=== PATIENT | female | born 1950 | race Caucasian/White ===

== ENCOUNTER 2018-08-18 15:15 | Inpatient (IN) | payer OTHER, MEDICARE ==
[~2018-08-18] VITALS: Ht 172.7 cm; Wt 83.3 kg
[2018-08-18 15:41] VITALS: BP 185/69
[2018-08-18 16:04] LABS: APPEARANCE,URINE Clear (CLEAR); BILIRUBIN,URINE Negative (NEGATIVE); COLOR,URINE Yellow (YELLOW); GLUCOSE, URINE (UA) Negative (NEGATIVE); KETONES,URINE Negative (NEGATIVE); LEUKOCYTE ESTERASE ,URINE Small (NEGATIVE); NITRATE,URINE Negative (NEGATIVE); OCCULT BLOOD,URINE Negative (NEGATIVE); PH,URINE 6.5 (5.0-8.0); PROTEIN,URINE Negative (NEGATIVE); UROBILINOGEN,URINE 0.2 mg/dL (0.2-1.0)
[2018-08-18 16:22] LABS: RBC,URINE 0-1 /HPF (0-1)
[2018-08-18 16:23] LABS: BACTERIA,URINE Rare /HPF (None Seen); SQUAMOUS EPITHELIAL CELL,UR None Seen /HPF (0-2)
[2018-08-21] VITALS (20 sets, daily range): BP systolic 123–156; BP diastolic 60–77
[2018-08-21] MEDS: CEFAZOLIN SODIUM 1 GM VIAL IVP SCH ×4 (06:00→22:41)
[2018-08-21] MEDS ORDERED: LACTATED RINGERS 1000ML 1,000 ML IV ONE (06:34)
[2018-08-21] MEDS ORDERED: ALEN70TA47 PO (06:58)
[2018-08-21] MEDS ORDERED: ATEN50TA PO (06:58)
[2018-08-21] MEDS ORDERED: LISI10TA7 PO (06:58)
[2018-08-21] MEDS ORDERED: NAPR-1023 PO (06:58)
[2018-08-21] MEDS ORDERED: BUPIVACAINE/EPI/PF 0.25% 50 ML VIAL ONE (07:25)
[2018-08-21] MEDS ORDERED: TRANEXAMIC ACID 1000MG/10ML IV ONE (07:25)
[2018-08-21] MEDS ORDERED: HYDROMORPHONE 1 MG/1 ML AMP ONE (07:48)
[2018-08-21] MEDS ORDERED: ONDANSETRON HCL MDV 20ML 2 MG/ML VIAL ONE ×2 (07:50→07:57)
[2018-08-21] MEDS ORDERED: LIDOCAINE PF 2% 5ML ABBOJECT ONE (07:50)
[2018-08-21] MEDS ORDERED: PROPOFOL 1000 MG/100 ML 100 ML IV ONE ×2 (07:50→10:17)
[2018-08-21] MEDS ORDERED: MIDAZOLAM HCL 1 MG/ML 2ML VIAL ONE (07:51)
[2018-08-21] MEDS ORDERED: ROCURONIUM 10MG/1ML SYR 10 MG/ML ML ONE (07:51)
[2018-08-21] MEDS ORDERED: KETAMINE 50MG/ML SYRINGE 50 MG/ML DISP.SYRIN IV ONE (08:00)
[2018-08-21] MEDS ORDERED: ROPIVACAINE 0.5% 5MG/ML 30ML IJ ONE ×2 (08:05→11:21)
[2018-08-21] MEDS ORDERED: DEXAMETHASONE SOD PHOSPHATE 10MG/ML 1ML VIAL ONE (10:16)
[2018-08-21] MEDS ORDERED: GLYCOPYRROLATE 1 MG/5 ML SYRINGE ONE (10:24)
[2018-08-21] MEDS ORDERED: NEOSTIGMINE 5MG/5ML SYR IV ONE (10:24)
[2018-08-21] MEDS ORDERED: CALCIUM CARBONATE 500 MG TABLET PO PRN (10:30)
[2018-08-21] MEDS ORDERED: TEMAZEPAM 15 MG CAPSULE PO PRN (10:30)
[2018-08-21] MEDS ORDERED: POTASSIUM CHLORIDE 10% ELIXIR 20 MEQ/15 ML UDCUP PO PRN (10:30)
[2018-08-21] MEDS ORDERED: POTASSIUM CHLORIDE 20 MEQ ERTAB PO PRN (10:30)
[2018-08-21] MEDS ORDERED: ONDANSETRON HCL 4 MG/2 ML VIAL IVP PRN (10:30)
[2018-08-21] MEDS ORDERED: DiphenhydrAMINE HCL 50 MG/ML VIAL IVP PRN (10:30)
[2018-08-21] MEDS ORDERED: FERROUS FUMARATE 324 MG TABLET PO PRN (10:30)
[2018-08-21] MEDS: ACETAMINOPHEN EXTRA STRENGTH 500 MG TABLET PO SCH ×2 (10:30→17:44)
[2018-08-21] MEDS ORDERED: POTASSIUM CHLORIDE 20MEQ/100ML 100 ML IV PRN (10:30)
[2018-08-21] MEDS ORDERED: TRAMADOL HCL 50 MG TABLET PO PRN (10:30)
[2018-08-21] MEDS ORDERED: LIDOCAINE HCL-MPF 1% 2ML VIAL IVP PRN (10:30)
[2018-08-21] MEDS ORDERED: FENTANYL CITRATE PF 50 MCG/1 ML 2ML VIAL ONE (11:14)
[2018-08-21] MEDS ORDERED: LIDOCAINE HCL 2% 20ML ONE (11:20)
[2018-08-21] MEDS ORDERED: MEPERIDINE-PF 50 MG/ML SYG ONE (11:26)
[2018-08-21] MEDS: SODIUM CHLORIDE 0.9% 1000ML 1,000 ML IV SCH ×2 (12:29→22:41)
[2018-08-21] MEDS: KETOROLAC TROMETHAMINE 15MG/ML IV PRN ×2 (12:33→19:13)
[2018-08-21] MEDS: OXYCODONE HCL 5 MG TAB PO PRN ×3 (13:42→22:41)
[2018-08-21] MEDS: FAMOTIDINE 20MG TAB 20 MG TAB PO SCH (20:08)
[2018-08-21] MEDS: LISINOPRIL 10 MG TABLET PO SCH (20:08)
[2018-08-21] MEDS: PREGABALIN 25 MG CAP PO SCH (20:08)
[2018-08-21] MEDS: ATENOLOL 50 MG TABLET PO SCH (20:09)
[2018-08-21] MEDS: ASPIRIN 325 MG TABLET PO SCH (21:51)
[2018-08-22 03:00] VITALS: BP 131/60
[2018-08-22] MEDS: ACETAMINOPHEN EXTRA STRENGTH 500 MG TABLET PO SCH ×3 (04:01→17:19)
[2018-08-22] MEDS: SODIUM CHLORIDE 0.9% 1000ML 1,000 ML IV SCH (04:06)
[2018-08-22 05:16] LABS: CREATININE 0.7 mg/dL (0.5-1.5); POTASSIUM 4.4 mmol/L (3.5-5.1)
[2018-08-22 05:22] LABS: HEMATOCRIT 31.7 % (36-48); MEAN CORPUSCULAR HEMOGLOBIN 30.7 pg (27.0-33.0); MEAN CORPUSCULAR HGB CONC 33.3 g/dL (32.0-36.0); MEAN CORPUSCULAR VOLUME 92.3 fL (79-99); PLATELET COUNT (AUTO) 208 K/uL (130-400); RED BLOOD CELL COUNT(AUTO) 3.43 MIL/uL (4.00-5.50); RED CELL DISTRIBUTION WIDTH 12.8 % (11.0-15.5)
[2018-08-22 08:12] VITALS: BP 123/65
[2018-08-22] MEDS: POLYETHYLENE GLYCOL 3350 17 GM POWD.PACK PO SCH (08:34)
[2018-08-22] MEDS: ASPIRIN 325 MG TABLET PO SCH ×2 (08:34→19:15)
[2018-08-22] MEDS: PREGABALIN 25 MG CAP PO SCH ×2 (08:34→19:15)
[2018-08-22] MEDS: FAMOTIDINE 20MG TAB 20 MG TAB PO SCH ×2 (08:34→19:15)
[2018-08-22] MEDS: OXYCODONE HCL 5 MG TAB PO PRN ×3 (08:35→22:06)
[2018-08-22] MEDS: KETOROLAC TROMETHAMINE 15MG/ML IV PRN (10:18)
[2018-08-22 11:31] VITALS: BP 132/54
[2018-08-22 16:19] VITALS: BP 136/57
[2018-08-22 19:00] VITALS: BP 140/98
[2018-08-22] MEDS: LISINOPRIL 10 MG TABLET PO SCH (19:16)
[2018-08-22] MEDS: ATENOLOL 50 MG TABLET PO SCH (19:16)
[2018-08-22 23:00] VITALS: BP 130/65
[2018-08-23] MEDS: ACETAMINOPHEN EXTRA STRENGTH 500 MG TABLET PO SCH ×2 (01:37→11:56)
[2018-08-23] MEDS: OXYCODONE HCL 5 MG TAB PO PRN ×2 (01:38→08:29)
[2018-08-23] MEDS ORDERED: OXYCODONE HCL 10 MG TAB.SR.12H PO ONE ×2 (01:39→04:49)
[2018-08-23 03:00] VITALS: BP 127/78
[2018-08-23 07:47] VITALS: BP 155/77
[2018-08-23] MEDS: POLYETHYLENE GLYCOL 3350 17 GM POWD.PACK PO SCH (08:27)
[2018-08-23] MEDS: FAMOTIDINE 20MG TAB 20 MG TAB PO SCH (08:27)
[2018-08-23] MEDS: ASPIRIN 325 MG TABLET PO SCH (08:27)
[2018-08-23] MEDS: PREGABALIN 25 MG CAP PO SCH (08:27)
[2018-08-23 11:18] VITALS: BP 118/56
[2018-08-23] MEDS ORDERED: ASPI-1012 PO (15:03)
[2018-08-23] MEDS ORDERED: HYDR-4457 PO (15:03)
[2018-08-23 16:40] VITALS: BP 138/67
[2018-08-24] MEDS ORDERED: BISACODYL 10 MG SUPP.RECT RC PRN (10:30)
== END 2018-08-23 18:56 | disposition home or self-care (01) | DRG 470 ==
LOC: EDSTATUS 15:15 → DAHIP 08-21 06:26 → 4AH 08-21 11:25
PROVIDERS: ADMIT Orthopaedic Surgery; ATTEND Orthopaedic Surgery
PROC: 0SRC0J9 Replacement of Right Knee Joint with Synthetic Substitute, Cemented, Open Approach (ICD-10-PCS; principal; 2018-08-21 09:07)
DX: M17.11 Unilateral primary osteoarthritis, right knee (principal); I10 Essential (primary) hypertension; Z90.710 Acquired absence of both cervix and uterus; Z88.8 Allergy status to other drugs, medicaments and biological substances
CPT/HCPCS: 36415; 80048; 81001; 85027; 88305; 88311; 93005; J0690; J1100; J1170; J1885; J2001; J2175; J2250; J2704; J2710; J2795; J3010; J3490; J7030; J7120

== ENCOUNTER 2021-03-28 12:18 | Emergency (ER) | payer MEDICARE, OTHER ==
[~2021-03-28] VITALS: Ht 172.7 cm; Wt 83.9 kg
[~2021-03-28 12:18] MED LIST: ALEN70TA80 PO; ASPI-1012 PO; ATEN50TA PO; HYDR-4457 PO; LISI10TA24 PO
[2021-03-28 12:20] VITALS: BP 111/76
== END 2021-03-28 14:19 | disposition home or self-care (01) ==
LOC: EDH 12:18
DX: S52.572A Other intraarticular fracture of lower end of left radius, initial encounter for closed fracture (principal); I10 Essential (primary) hypertension; Z88.5 Allergy status to narcotic agent; Z88.1 Allergy status to other antibiotic agents; Z79.899 Other long term (current) drug therapy; Z79.82 Long term (current) use of aspirin; W18.39XA Other fall on same level, initial encounter; Y93.89 Activity, other specified; Y92.89 Other specified places as the place of occurrence of the external cause; Y99.8 Other external cause status
CPT/HCPCS: 29125; 73110

== ENCOUNTER 2021-09-21 08:00 | Observation (INO) | payer MEDICARE ==
[~2021-09-21] VITALS: Ht 167.6 cm; Wt 80.4 kg
[~2021-09-21 08:00] MED LIST changes: -ALEN70TA80 PO; -ASPI-1012 PO; -HYDR-4457 PO
[2021-09-21 10:03] LABS: BASOPHILS % (AUTO) 0.5 % (0.0-5.0); EOSINOPHILS % (AUTO) 2.6 % (0.0-8.0); HEMATOCRIT 32.1 % (36-48); LYMPHOCYTES % (AUTO) 29.1 % (21.0-51.0); MEAN CORPUSCULAR HEMOGLOBIN 31.2 pg (27.0-33.0); MEAN CORPUSCULAR HGB CONC 31.8 g/dL (32.0-36.0); MEAN CORPUSCULAR VOLUME 98.2 fL (79-99); NEUTROPHILS % (AUTO) 60.5 % (40.0-77.0); PLATELET COUNT (AUTO) 274 K/uL (130-400); RED BLOOD CELL COUNT(AUTO) 3.27 MIL/uL (4.00-5.50); RED CELL DISTRIBUTION WIDTH 12.7 % (11.0-15.5); WHITE BLOOD COUNT (AUTO) 6.6 K/uL (4.8-10.8)
[2021-09-21 10:10] LABS: APPEARANCE,URINE Clear (CLEAR); BILIRUBIN,URINE Negative (NEGATIVE); COLOR,URINE Yellow (YELLOW); GLUCOSE, URINE (UA) Negative (NEGATIVE); KETONES,URINE Negative (NEGATIVE); LEUKOCYTE ESTERASE ,URINE Trace (NEGATIVE); NITRATE,URINE Negative (NEGATIVE); OCCULT BLOOD,URINE Negative (NEGATIVE); PH,URINE 5.5 (5.0-8.0); PROTEIN,URINE Negative (NEGATIVE); UROBILINOGEN,URINE 0.2 mg/dL (0.2-1.0)
[2021-09-21 10:17] LABS: CREATININE 1.2 mg/dL (0.5-1.5); POTASSIUM 4.6 mmol/L (3.5-5.1)
[2021-09-21 10:22] LABS: BACTERIA,URINE Rare /HPF (None Seen); RBC,URINE 0-1 /HPF (0-1); SQUAMOUS EPITHELIAL CELL,UR Rare /HPF (0-2); WBC,URINE 0-1 /HPF (0-1)
[2021-09-21 10:26] LABS: INR 0.99 (0.85-1.15); PROTHROMBIN TIME 10.8 SEC (9.6-11.6)
[2021-09-22 13:26] VITALS: BP 147/67
[2021-09-22] MEDS ORDERED: VIT PO (14:00)
[2021-09-22] MEDS ORDERED: NAPR-1023 PO (14:00)
[2021-09-22] MEDS ORDERED: IBUP-2784 PO (14:00)
[2021-09-22] MEDS ORDERED: CHOL200074 PO (14:00)
[2021-09-22] MEDS ORDERED: LATA7.5D OU (14:00)
[2021-09-22] MEDS ORDERED: CALCIUM PO (14:00)
[2021-09-22] MEDS ORDERED: TRAM50TA4 PO (14:00)
[2021-09-23] VITALS (30 sets, daily range): BP systolic 111–144; BP diastolic 40–82
[2021-09-23] MEDS ORDERED: CEFAZOLIN SODIUM 1 GM VIAL ONE ×2 (06:55→07:44)
[2021-09-23] MEDS ORDERED: LACTATED RINGERS 1000ML 1,000 ML IV ONE (06:55)
[2021-09-23] MEDS ORDERED: TRANEXAMIC ACID 1000MG/10ML ONE ×2 (07:44→11:52)
[2021-09-23] MEDS ORDERED: CEFAZOLIN SODIUM 1 GM VIAL IVP ONE (08:00)
[2021-09-23] MEDS ORDERED: 0.9%NACL 10ML VIAL ONE (08:10)
[2021-09-23] MEDS ORDERED: ROPIVACAINE 0.5% 5MG/ML 30ML IJ ONE (08:10)
[2021-09-23] MEDS ORDERED: SUCCINYLCHOLINE CHLORIDE 20 MG/ML 10 ML VIAL ONE (08:30)
[2021-09-23] MEDS ORDERED: MIDAZOLAM HCL 1 MG/ML 2ML VIAL ONE (08:30)
[2021-09-23] MEDS ORDERED: PROPOFOL 10 MG/ML 20ML VIAL IV ONE (08:30)
[2021-09-23] MEDS ORDERED: LIDOCAINE PF 100MG/5ML (2%) SYRINGE 5ML ONE (08:30)
[2021-09-23] MEDS ORDERED: ROCURONIUM 10MG/1ML SYR 10 MG/ML ML ONE (08:30)
[2021-09-23] MEDS ORDERED: EPHEDRINE SULFATE 50 MG/ML AMPULE ONE (08:57)
[2021-09-23] MEDS ORDERED: CEFAZOLIN SODIUM 1 GM VIAL IRRIG ONE (09:18)
[2021-09-23] MEDS ORDERED: FENTANYL CITRATE PF 50 MCG/1 ML 2ML VIAL ONE ×2 (09:21→09:38)
[2021-09-23] MEDS ORDERED: POTASSIUM CHLORIDE 20MEQ/100ML 100 ML IV PRN (11:30)
[2021-09-23] MEDS: ACETAMINOPHEN 500 MG TABLET PO SCH ×2 (11:30→20:32)
[2021-09-23] MEDS ORDERED: TRAMADOL HCL 50 MG TABLET PO PRN (11:30)
[2021-09-23] MEDS ORDERED: FERROUS FUMARATE 324 MG TABLET PO PRN (11:30)
[2021-09-23] MEDS ORDERED: POTASSIUM CHLORIDE 10% ELIXIR 20 MEQ/15 ML UDCUP PO PRN (11:30)
[2021-09-23] MEDS ORDERED: TEMAZEPAM 15 MG CAPSULE PO PRN (11:30)
[2021-09-23] MEDS ORDERED: DiphenhydrAMINE HCL 50 MG/ML VIAL IVP PRN (11:30)
[2021-09-23] MEDS ORDERED: CALCIUM CARB 500MG PO PRN (11:30)
[2021-09-23] MEDS ORDERED: KCL 20 MEQ ERTAB PO PRN (11:30)
[2021-09-23] MEDS ORDERED: OXYCODONE HCL 5 MG TAB PO PRN (11:30)
[2021-09-23] MEDS ORDERED: LIDOCAINE HCL-MPF 1% 2ML VIAL IV PRN (11:30)
[2021-09-23] MEDS ORDERED: ONDANSETRON 4MG INJ ONE (11:35)
[2021-09-23] MEDS ORDERED: NEOSTIGMINE 5MG/5ML SYR IV ONE (11:36)
[2021-09-23] MEDS ORDERED: GLYCOPYRROLATE 1 MG/5 ML SYRINGE ONE (11:36)
[2021-09-23] MEDS ORDERED: MEPERIDINE-PF 25 MG/ML SYG ONE ×2 (12:22→12:29)
[2021-09-23] MEDS: ONDANSETRON 4MG INJ IVP PRN ×2 (12:26→12:33)
[2021-09-23] MEDS: FENTANYL CITRATE PF 50 MCG/1 ML 2ML VIAL ONE ×2 (12:47→12:49)
[2021-09-23] MEDS: 0.9%NACL 1000ML 1,000 ML IV SCH (14:40)
[2021-09-23] MEDS: KETOROLAC 15MG/ML VIAL (15MG/ML) IV PRN (15:21)
[2021-09-23] MEDS: OXYCODONE HCL 5 MG TAB PO PRN ×2 (15:37→20:31)
[2021-09-23] MEDS: CEFAZOLIN SODIUM 1 GM VIAL IVP SCH (16:51)
[2021-09-23] MEDS: ASPIRIN 81 MG EC TAB PO SCH (20:30)
[2021-09-23] MEDS: FAMOTIDINE 20MG TAB PO SCH (20:30)
[2021-09-23] MEDS: PREGABALIN 25 MG CAP PO SCH (20:31)
[2021-09-24] VITALS: BP 120/61
[2021-09-24] MEDS: CEFAZOLIN SODIUM 1 GM VIAL IVP SCH (00:25)
[2021-09-24] MEDS: ONDANSETRON 4MG INJ IVP PRN (00:30)
[2021-09-24] MEDS: KETOROLAC 15MG/ML VIAL (15MG/ML) IV PRN ×2 (01:17→09:50)
[2021-09-24] MEDS: 0.9%NACL 1000ML 1,000 ML IV SCH ×2 (03:02→07:30)
[2021-09-24] MEDS: ACETAMINOPHEN 500 MG TABLET PO SCH ×2 (03:10→11:18)
[2021-09-24 04:00] VITALS: BP 106/59
[2021-09-24 04:43] LABS: HEMATOCRIT 24.8 % (36-48); MEAN CORPUSCULAR HEMOGLOBIN 31.3 pg (27.0-33.0); MEAN CORPUSCULAR HGB CONC 31.9 g/dL (32.0-36.0); MEAN CORPUSCULAR VOLUME 98.4 fL (79-99); RED BLOOD CELL COUNT(AUTO) 2.52 MIL/uL (4.00-5.50); RED CELL DISTRIBUTION WIDTH 12.6 % (11.0-15.5); WHITE BLOOD COUNT (AUTO) 4.7 K/uL (4.8-10.8)
[2021-09-24 05:00] LABS: CREATININE 1.1 mg/dL (0.5-1.5); POTASSIUM 4.4 mmol/L (3.5-5.1)
[2021-09-24 07:30] VITALS: BP 108/67
[2021-09-24] MEDS: OXYCODONE HCL 5 MG TAB PO PRN ×2 (08:21→13:08)
[2021-09-24] MEDS: FAMOTIDINE 20MG TAB PO SCH (08:21)
[2021-09-24] MEDS: ASPIRIN 81 MG EC TAB PO SCH (08:21)
[2021-09-24] MEDS: PREGABALIN 25 MG CAP PO SCH (09:00)
[2021-09-24] MEDS ORDERED: POLYETHYLENE GLYCOL 3350 17 GM POWD.PACK PO SCH (09:00)
[2021-09-24 11:00] VITALS: BP 134/66
[2021-09-24] MEDS ORDERED: CA 600MG+VIT D 400 UNIT TAB 1 TAB TABLET PO SCH (13:00)
[2021-09-24] MEDS ORDERED: AEC81 PO (15:07)
[2021-09-24] MEDS ORDERED: FERR324T10 PO (15:07)
[2021-09-24] MEDS ORDERED: OXYC-38 PO (15:07)
[2021-09-24] MEDS ORDERED: LATANOPROST 2.5 ML DROPS OU SCH (21:00)
[2021-09-24] MEDS ORDERED: ATENOLOL 50 MG TABLET PO SCH (21:00)
[2021-09-24] MEDS ORDERED: LISINOPRIL 10 MG TABLET PO SCH (21:00)
[2021-09-26] MEDS ORDERED: BISACODYL 10 MG SUPP.RECT RC PRN (11:30)
[2021-10-01] MEDS ORDERED: **HM**VIT D3 50MCG PO SCH (09:00)
== END 2021-09-24 16:30 | disposition home health service (06) ==
LOC: OBSVTOIN 09-23 06:18 → INTOOBSV 09-23 06:18 → DAHIP 09-23 06:18 → EDSTATUS 09-23 08:00 → 4AH 09-23 13:37
PROVIDERS: ADMIT Orthopaedic Surgery; ATTEND Orthopaedic Surgery
DX: M17.12 Unilateral primary osteoarthritis, left knee (principal); Z20.822 Contact with and (suspected) exposure to COVID-19; M21.062 Valgus deformity, not elsewhere classified, left knee; D62 Acute posthemorrhagic anemia; I10 Essential (primary) hypertension; K21.9 Gastro-esophageal reflux disease without esophagitis; Z90.710 Acquired absence of both cervix and uterus; Z79.899 Other long term (current) drug therapy
CPT/HCPCS: 27447; 36415 ×2; 64447; 76942; 80048 ×2; 81001; 85025; 85027; 85610; 87088; 87635; 87641; 93005; 96374; 96375 ×2; 96376; 97039 ×2; 97116 ×2; 97161; 97530 ×2; A4213; A4215; A4221; A4222; A4223; A4649 ×5; A4663; A6260; A9272; C1776; G0378 ×23; J0330; J0690 ×5; J1200; J1885 ×3; J2001; J2175 ×2; J2250; J2405 ×4; J2704; J2710; J2795; J3010 ×3; J3490 ×4; J7120 ×2